=== PATIENT | male | born 1980 | race Caucasian/White ===

== ENCOUNTER 2016-10-14 20:56 | Emergency (ER) | payer OTHER ==
[2016-10-14 21:07] VITALS: BP 108/80; PULSE 93; RESP 18; TEMP 97.7; O2SAT 97
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
== END 2016-10-14 21:50 | disposition home or self-care (01) ==
LOC: CED 20:56
PROC: 0HQ1XZZ Repair Face Skin, External Approach (ICD-10-PCS; principal; 2016-10-14)
DX: S02.5XXA Fracture of tooth (traumatic), initial encounter for closed fracture (principal); S01.81XA Laceration without foreign body of other part of head, initial encounter; V29.40XA Motorcycle driver injured in collision with unspecified motor vehicles in traffic accident, initial encounter; Y92.410 Unspecified street and highway as the place of occurrence of the external cause; Y99.8 Other external cause status; Y93.89 Activity, other specified